=== PATIENT | female | born 1985 | race Hispanic/Latino ===

== ENCOUNTER 2024-04-23 06:24 | Day surgery (SDC) | payer BC ==
[2024-04-23] VITALS (13 sets, daily range): BP systolic 108–125; BP diastolic 66–81; PULSE 61–88; RESP 14–18; TEMP 97.3–98.4
[~2024-04-23] VITALS: Ht 175.3 cm; Wt 108.4 kg
[2024-04-23] MEDS ORDERED: 0.9%NACL 1000ML 1,000 ML IV ONE (06:39)
[2024-04-23] MEDS ORDERED: PHEN15CA61 PO (07:03)
[2024-04-23] MEDS ORDERED: OMEP40CA21 PO (07:03)
[2024-04-23] MEDS: 0.9%NACL 1000ML 1,000 ML IV ONE (07:33)
[2024-04-23] MEDS ORDERED: LIDOCAINE PF 100MG/5ML (2%) SYRINGE 5ML ONE (10:59)
[2024-04-23] MEDS ORDERED: dexaMETHasone SOD PHOSPHATE 10MG/ML 1ML VIAL ONE (10:59)
[2024-04-23] MEDS ORDERED: NEOSTIGMINE METHYLSULFATE 1MG/ML IV ONE (11:00)
[2024-04-23] MEDS ORDERED: GLYCOPYRROLATE 0.2 MG/ML 5 ML VIAL ONE (11:00)
[2024-04-23] MEDS ORDERED: rocuRONium bROMide 10MG/1ML 5ML VL ONE (11:00)
[2024-04-23] MEDS ORDERED: ondanSETRON 4MG INJ ONE (11:00)
[2024-04-23] MEDS ORDERED: FENTanyl CITRate PF 50 MCG/1 ML 2ML VIAL ONE ×2 (11:00→13:01)
[2024-04-23] MEDS ORDERED: SUCCINYLCHOLINE CHLORIDE 20 MG/ML 10 ML VIAL ONE (11:00)
[2024-04-23] MEDS ORDERED: proPOFol 10 MG/ML 20ML VIAL IV ONE ×2 (11:00→12:52)
[2024-04-23] MEDS ORDERED: MIDAZOLAM HCL 1 MG/ML 2ML VIAL ONE (11:01)
[2024-04-23] MEDS: MEPERIDINE-PF 25 MG/ML SYG ONE (13:45)
[2024-04-23] MEDS: ondanSETRON 4MG INJ ONE (13:45)
--- NOTE | 2024-04-23 14:42 | NUR ---
Patient aox4. Denies c/o pain or discomfort. Voiced understanding to EGD precautions and follow up expectations. Ambulated to bathroom with standby assist. Voided large amount of clear urine. PIV discontinued with catheter tip intact. Full and complete Discharge instructions given to Patient and Family. All questions answered. W/C to POV with Family to Home.
== END 2024-04-23 14:45 | disposition home or self-care (01) ==
LOC: ENDO 06:24 → DAH 06:24 → ENDO 14:45
PROVIDERS: ATTEND Internal Medicine Gastroenterology
DX: K30 Functional dyspepsia (principal); E66.01 Morbid (severe) obesity due to excess calories; K22.89 Other specified disease of esophagus; K91.1 Postgastric surgery syndromes; K21.00 Gastro-esophageal reflux disease with esophagitis, without bleeding; F17.200 Nicotine dependence, unspecified, uncomplicated; Z98.84 Bariatric surgery status; Z98.891 History of uterine scar from previous surgery; Z68.36 Body mass index [BMI] 36.0-36.9, adult; Z98.890 Other specified postprocedural states; Z79.899 Other long term (current) drug therapy
CPT/HCPCS: 81025; 43270; C9901; J3010 ×2; J1100; J0330; J7030 ×3; J3490 ×2; J2003; J2250; J2704 ×2; J2405 ×2; J2710; J2175; A4620; A4215 ×2; A4223; A4657 ×2; A7002; A4222; A4221; A4663; A4606